=== PATIENT | female | born 1990 | race Caucasian/White ===

== ENCOUNTER 2023-10-24 16:38 | Emergency (ER) | payer OTHER ==
[~2023-10-24] VITALS: Ht 165.1 cm; Wt 81.6 kg
[2023-10-24 17:13] VITALS: BP 126/94; PULSE 66; RESP 18; TEMP 97.8; O2SAT 100
[2023-10-24 19:10] VITALS: BP 125/82; PULSE 66; RESP 18; TEMP 98; O2SAT 100
== END 2023-10-24 19:10 | disposition home or self-care (01) ==
LOC: MED 16:38
DX: S93.401A Sprain of unspecified ligament of right ankle, initial encounter (principal); X58.XXXA Exposure to other specified factors, initial encounter; Y92.89 Other specified places as the place of occurrence of the external cause; Y93.89 Activity, other specified; Y99.8 Other external cause status
CPT/HCPCS: 73610; 99283